=== PATIENT | female | born 1985 | race Hispanic/Latino ===

== ENCOUNTER 2023-11-04 17:58 | Emergency (ER) | payer BC ==
[~2023-11-04] VITALS: Ht 167.6 cm; Wt 54.4 kg
[2023-11-04 18:05] VITALS: PULSE 73; RESP 15; TEMP 98.5; O2SAT 100
[2023-11-04] MEDS ORDERED: PYRIDIUM200 MG PO (18:45)
[2023-11-04] MEDS ORDERED: CEFUROXIME250 MG PO (18:45)
== END 2023-11-04 18:58 | disposition home or self-care (01) ==
LOC: FSED 18:03
DX: R30.0 Dysuria (principal); N30.01 Acute cystitis with hematuria; R10.31 Right lower quadrant pain
CPT/HCPCS: 81003; 99283